=== PATIENT | female | born 1990 | race Caucasian/White ===

== ENCOUNTER 2018-02-04 11:34 | Emergency (ER) | payer SELFPAY ==
--- NOTE | 2018-02-04 11:40 | EDM.PDOC ---
ED HPI GENERAL MEDICAL PROBLEM - General Chief Complaint: ENT Problem Stated Complaint: EAR ACHE, SORE THROAT Time Seen by Provider: 02/04/18 11:40 Source of Information: Reports: Patient History Limitations: Reports: No Limitations - History of Present Illness INITIAL COMMENTS - FREE TEXT/NARRATIVE: HISTORY AND PHYSICAL: []27-year-old female presenting with sore throat and ear pain History of Present Illness: []Patient has had difficulties since Thursday, 4 days ago Review of Systems: As per history of present illness and below otherwise all systems reviewed and negative. Past medical history: As per history of present illness and as reviewed below otherwise noncontributory. Surgical history: As per history of present illness and as reviewed below otherwise noncontributory. Social history: No reported history of drug or alcohol abuse. Family history: As per history of present illness and as reviewed below otherwise noncontributory. Physical exam: Alert and oriented female answering questions appropriately in full sentences without any shortness of breath. She is nontoxic in appearance. HEENT: Atraumatic, normocehpalic, pupils reactive, negative for conjunctival pallor or scleral icterus, mucous membranes moist, throat with erythema, neck supple, nontender, trachea midline. Tympanic membrane on the right is yellow white with effusion erythema. Right cervical adenopathy tender upon palpation. Full range of motion is present Lungs: Clear to auscultation, breath sounds equal bilaterally, chest non tender. Heart: S1S2, regular, negative for clicks, rubs, or JVD. Abdomen: Soft, nondistended, nontender. Negative for masses or hepatossplenmegaly. Negative for costovertebral tenderness. Pelvis: Stable nontender. Genitourinary: Deferred. Rectal: Deferred Extremities: Atraumatic, negative for cords or calf pain. Neurovascular unremarkable. Neuro: Awake, alert, oriented. Cranial nerves II through XII unremarkable. Cerebellum unremarkable. Motor and sensory unremarkable throughout. Exam nonfocal. Diagnostics: [] Therapeutics: [] Impression: []Right otitis media with effusion Pharyngitis Plan: []Discharged home Antibiotics of Augmentin Antibiotic drops of Cortisporin Recommend follow-up with ENT specialist Dr. Chace SIMPSON [facility] [address] [place] [address] [phone] Return to the emergency room as directed and discussed Definitive disposition and diagnosis as appropriate pending reevaluation and review of above. Onset: Gradual Duration: Day(s): (4) Location: Reports: Head Quality: Reports: Ache, Pressure Severity: Moderate Improves with: Reports: None Worsens with: Reports: None Associated Symptoms: Reports: No Other Symptoms Treatments [employer]: Reports: Acetaminophen, NSAIDS Right Ear Pain Score (Numeric/FACES): 5 - Related Data Allergies Allergy/AdvReac Type Severity Reaction Status Date / Time No Known Allergies Allergy Verified 02/04/18 11:49 Home Meds: Home Meds Amoxicillin/Potassium Clav [Augmentin 875-125 Tablet] 1 each PO BID #20 tablet 02/04/18 [Rx] Hydrocort/Neomycin/Polymyxin B [Wqaknbmz-Brxonllsw-OV Otic Susp] 10 ml EARRT Q6HRRT 5 Days #1 bottle 02/04/18 [Rx] ED ROS ENT - Review of Systems Review Of Systems: ROS reveals no pertinent complaints other than HPI. ED EXAM, ENT - Physical Exam Exam: See Below (See dictation) Course - Vital Signs Last Recorded V/S: Last Vital Signs Temp 36.7 C 02/04/18 11:43 Pulse 86 02/04/18 11:43 Resp 18 02/04/18 11:43 BP 139/76 02/04/18 11:43 Pulse Ox 96 02/04/18 11:43 Departure - Departure Time of Disposition: 11:54 Disposition: Home, Self-Care 01 Condition: Good Clinical Impression: Otitis media Qualifiers: Otitis media type: unspecified Chronicity: acute Qualified Code(s): H66.90 - Otitis media, unspecified, unspecified ear - Discharge Information Prescriptions: Amoxicillin/Potassium Clav [Augmentin 875-125 Tablet] 1 each PO BID #20 tablet Hydrocort/Neomycin/Polymyxin B [Sefvdjwg-Uovlsyipl-PX Otic Susp] 10 ml EARRT Q6HRRT 5 Days #1 bottle Instructions: Ear Drops, Adult, Uiup-hj-Sekl, Otitis Media, Adult, [id number]-[id number] Referrals: PCP,Not In Area [Primary Care Provider] - Caridad Mas MD [Physician] - Forms: ED Department Discharge Additional Instructions: The following information is given to patients seen in the emergency department who are being discharged to home. This information is to outline your options for follow-up care. We provide all patients seen in our emergency department with a follow-up referral. The need for follow-up, as well as the timing and circumstances, are variable depending upon the specifics of your emergency department visit. If you don't have a primary care physician on staff, we will provide you with a referral. We always advise you to contact your personal physician following an emergency department visit to inform them of the circumstance of the visit and for follow-up with them and/or the need for any referrals to a consulting specialist. The emergency department will also refer you to a specialist when appropriate. This referral assures that you have the opportunity for followup care with a specialist. All of these measure are taken in an effort to provide you with optimal care, which includes your followup. Under all circumstances we always encourage you to contact your private physician who remains a resource for coordinating your care. When calling for followup care, please make the office aware that this follow-up is from your recent emergency room visit. If for any reason you are refused follow-up, please contact the [facility] emergency department at and asked to speak to the emergency department charge nurse. SHe was found to have otitis media "ear infection" that has a fusion which is fluid behind the clinic membrane(ear drum) Drops were issued to reduce the inflammation and will reduce the pain Antibiotics are also ordered Referral has been made for you to see heat and follow-up with Dr. Caridad Mas [facility] [address] [place] [id number] Phone: Return to the emergency room as directed and discussed
== END 2018-02-04 12:12 | disposition home or self-care (01) ==
LOC: MW.ED 11:34
DX: H65.91 Unspecified nonsuppurative otitis media, right ear (principal); J02.9 Acute pharyngitis, unspecified
CPT/HCPCS: 99282; 99283